=== PATIENT | male | born 1985 | race Caucasian/White ===

== ENCOUNTER 2020-09-04 17:58 | Emergency (ER) | payer OTHER ==
[~2020-09-04] VITALS: Ht 170.2 cm; Wt 86.2 kg
[2020-09-04] MEDS: ACETAMINOPHEN 325 MG TABLET PO ONE (18:58)
[2020-09-04] MEDS ORDERED: ACETAMINOPHEN ES 500 MG TABLET ONE (18:58)
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
--- NOTE | 2020-09-04 19:49 | NUR ---
Patient discharged to home in stable condition. Written and verbal after care instructions given. Patient verbalizes understanding of instruction and RX.
[2020-09-04 19:50] VITALS: BP 131/70
[2020-09-04] MEDS ORDERED: ONDANSETRON HCL/PF 4 MG/2 ML VIAL ONE (22:01)
== END 2020-09-04 19:50 ==
LOC: ER 17:58
DX: S00.12XA Contusion of left eyelid and periocular area, initial encounter (principal); S80.212A Abrasion, left knee, initial encounter; S80.211A Abrasion, right knee, initial encounter; Y04.0XXA Assault by unarmed brawl or fight, initial encounter; Y93.89 Activity, other specified; Y92.89 Other specified places as the place of occurrence of the external cause; Y99.8 Other external cause status
CPT/HCPCS: 70450; 70486; 99285; J2405